=== PATIENT | female | born 1965 | race Caucasian/White ===

== ENCOUNTER 2016-05-23 02:14 | Emergency (ER) | payer OTHER ==
[2016-05-23 02:47] VITALS: BP 140/85; PULSE 58; RESP 16; TEMP 97.9; O2SAT 96
--- NOTE | 2016-05-23 03:13 | EDPHY ---
[id number] HPI/ROS: HPI The patient presents brought in by ambulance with right foot pain which has been present for the last 1 week and is getting progressively worse. The pain is achy, constant, though worse when she walks. She is here from [place], [place] and came here on a whim. She has been staying at the [facility]. She has been doing several hours of walking every day. She does not have any changes in her skin, redness, fevers or chills. She does not have any direct trauma. REVIEW OF SYSTEMS Constitutional: No fever, no chills. Eyes: No discharge. ENT: No sore throat. Cardiovascular: No chest pain, no palpitations. Respiratory: No cough, no shortness of breath. Gastrointestinal: No abdominal pain, no vomiting. Genitourinary: No hematuria. Musculoskeletal: No back pain. Skin: No rashes. Neurological: No headache. PMHx: Psychiatric disease, hypertension Soc Hx: Visiting from [place], staying in a homeless long-term PHYSICAL General Appearance: Alert, no distress Eyes: Pupils equal and round no pallor or injection ENT, Mouth: Mucous membranes moist Respiratory: There are no retractions, lungs are clear to auscultation Cardiovascular: Regular rate and rhythm Gastrointestinal: Abdomen is soft and non-tender, no masses, bowel sounds normal Neurological: A&O, moves all extremities Skin: Warm and dry, no rashes Musculoskeletal: Neck is supple non tender Extremities: Right plantar surface of foot has a callus at the base of the 1st MTP, symmetrical, full range of motion Psychiatric: Patient is oriented X 3, there is no agitation Source: Patient, EMS - Personal History LMP (Females 10-55): Irregular Current Tetanus/Diphtheria Vaccine: Unsure Current Tetanus Diphtheria and Acellular Pertussis (TDAP): Unsure - Medical/Surgical History Hx Asthma: No Hx Chronic Respiratory Disease: No Hx Diabetes: No Hx Cardiac Disease: No Hx Renal Disease: No Hx Cirrhosis: No Hx Alcoholism: No Hx HIV/AIDS: No Hx Splenectomy or Spleen Trauma: No Other PMH: psych - Social History Smoking Status: Current every day smoker Constitutional: Initial Vital Signs Temperature (C) 36.6 C 05/23/16 02:43 Heart Rate 58 L 05/23/16 02:43 Respiratory Rate 16 05/23/16 02:43 Blood Pressure 140/85 H 05/23/16 02:43 O2 Sat (%) 96 05/23/16 02:43 O2 Delivery Mode Room Air Allergies/Adverse Reactions: No Known Allergies Allergy (Unverified 05/23/16 02:28) Home Medications: Medication Instructions Recorded Gabapentin 05/23/16 [place] Aspartate 05/23/16 Metoprolol Tartrate 05/23/16 NK [No Known Home Meds] 05/23/16 traZODone 05/23/16 Medical Decision Making Differential Diagnosis: This is a 51-year-old homeless woman with past medical history of some sort of psychiatric disease, schizoaffective versus bipolar, hypertension who presents brought in by ambulance for right foot pain after prolonged walking. She appears to have a callus on her foot. Other possibilities include cellulitis, abscess, fungal infection. I have explained that she should rest, ice, elevate her leg and take ibuprofen as needed for pain. She is in agreement with this. She will be discharged back to her homeless long-term. Departure - Departure Disposition: Home, Routine, Self-Care Clinical Impression: Foot callus Condition: Good Instructions: Foot Sprain (ED), RICE Therapy (ED) Additional Instructions: I recommend you take ibuprofen 400 mg every 6 hours as needed for pain. Referrals: [facility] [Outside] - As per Instructions
== END 2016-05-23 03:31 | disposition home or self-care (01) ==
DX: L84 Corns and callosities (principal); F17.200 Nicotine dependence, unspecified, uncomplicated; I10 Essential (primary) hypertension

== ENCOUNTER 2016-05-27 18:08 | Emergency (ER) | payer OTHER ==
[2016-05-27 18:11] VITALS: BP 147/89; PULSE 79; RESP 18; TEMP 98.1; O2SAT 98
--- NOTE | 2016-05-27 18:13 | EDPHY ---
H & P Stated Complaint: R Foot Pain Time Seen by Provider: 05/27/16 18:38 HPI/ROS: CHIEF COMPLAINT: Insomnia HISTORY OF PRESENT ILLNESS: This patient is a homeless 51 year old female who presents to the Emergency Department complaining of difficulty sleeping over the past five days. She attributes this to staying in the [facility] skilled nursing and tells me that she is hoping to sleep better tonight when she has a reservation at a hotel. She also complains of hearing intermittent voices; she is a and hears a voice requesting that she check-in. She also hears her partner's voice complimenting her. She has not experienced this symptom in the past but is not concerned about it. She is not currently experiencing auditory or visual hallucinations. She denies thoughts of self-harm or suicide. Medical history includes a mood disorder for which she takes lithium and trazodone. She was seen here in the ED on 05/23 for complaint of right foot pain and was discharged home in good condition at that time. History taking was interrupted when the patient fell asleep twice while reporting her condition. REVIEW OF SYSTEMS: A ten point review of systems was performed and is negative with the exception of the items mentioned in the HPI. Source: Patient - Personal History LMP (Females 10-55): Post Menopausal Current Tetanus Diphtheria and Acellular Pertussis (TDAP): Yes Tetanus Vaccine Date: within 10 years - Medical/Surgical History Hx Asthma: No Hx Chronic Respiratory Disease: No Hx Diabetes: No Hx Cardiac Disease: No Hx Renal Disease: No Hx Cirrhosis: No Hx Alcoholism: No Hx HIV/AIDS: No Hx Splenectomy or Spleen Trauma: No Other PMH: psych - PTSD, HTN - Social History Smoking Status: Current every day smoker Additional Social History: She is homeless. She and her partner are planning to return to the [facility] later this week and reportedly have the resources for a hotel tonight and a plane ticket. - Physical Exam Exam: General Appearance: Alert. Vital signs reviewed. BP 147/89. Eyes: Pupils equal and round, no conjunctival injection, no discharge. Anicteric. ENT, Mouth: Mucous membranes are moist, no oropharyngeal erythema or edema. Neck: No lymphadenopathy, supple. Respiratory: Lungs are clear to auscultation; no wheezes, rales, or rhonchi. Cardiovascular: Regular rate and rhythm; no murmur, rub, or gallop. Gastrointestinal: Abdomen is soft and nontender, no masses or organomegaly, bowel sounds normal. Skin: Warm and dry, no rashes on exposed skin, normal color. Extremities: No lower extremity edema, no calf tenderness or swelling. Blister on dorsum of left foot, ball of foot below great toe. Also callous at that site. No signs of infection either foot.. Neurological: Alert and oriented. Moving all four extremities easily and equally. Psychiatric: Appears sleepy. No agitation. Not attending to external stimuli. Constitutional: Initial Vital Signs Temperature (C) 36.7 C 05/27/16 18:10 Heart Rate 79 05/27/16 18:10 Respiratory Rate 18 05/27/16 18:10 Blood Pressure 147/89 H 05/27/16 18:10 O2 Sat (%) 98 05/27/16 18:10 O2 Delivery Mode Room Air Allergies/Adverse Reactions: No Known Allergies Allergy (Unverified 05/23/16 02:28) Home Medications: Medication Instructions Recorded Gabapentin 05/23/16 [place] Aspartate 05/23/16 Metoprolol Tartrate 05/23/16 NK [No Known Home Meds] 05/23/16 traZODone 05/23/16 Medical Decision Making ED Course/Re-evaluation: I discussed the patient with Case Management who will provide the patient with a bus pass to go to the hotel where she has a reservation. We will bandage her blister and provide her with socks prior to discharge home. The patient is agreeable to this plan. I have not found evidence of an emergency medical condition that would require further evaluation in the emergency department. Differential Diagnosis: I considered a differential diagnosisThat includes but is not limited to effect of sleep deprivation,psychosis,auditory hallucinations, clemencia, and depression. Departure - Departure Disposition: Home, Routine, Self-Care Clinical Impression: Blister of foot Qualifiers: Qualifier Code: (S90.821D) Blister (nonthermal), right foot, subsequent encounter Insomnia Qualifiers: Qualifier Code: (G47.09) Other insomnia Condition: Good Instructions: Insomnia (ED), Blister (ED) Additional Instructions: 1. Get a night of good sleep to see if you feel better. 2. Wear socks and the bandage over your blister over the next 1-2 days to see if this improves your foot pain. 3. Follow-up with [facility] should you have additional health concerns. 4. Return to the Emergency Department if you experience thoughts of suicide or self-harm, hallucinations, numbness or tingling, dizziness, anxiety, chest pain , fever, or other serious concerns. Referrals: [facility] [Outside] - As per Instructions Report Scribed for: Anita Worrell Report Scribed by: June Mott Date of Report: 05/27/16 Time of Report: 18:17 Physician Review and Approval Statement: 05/27/16 18:12 Portions of this note were transcribed by the medical claims manager. I, Dr. Anita Worrell, personally performed the history, physical exam, and medical decision- making; and confirmed the accuracy of the information in the transcribed note.
== END 2016-05-27 18:52 | disposition home or self-care (01) ==
LOC: EDUNIT#
DX: G47.09 Other insomnia (principal); S90.821D Blister (nonthermal), right foot, subsequent encounter; F17.200 Nicotine dependence, unspecified, uncomplicated; I10 Essential (primary) hypertension; X58.XXXD Exposure to other specified factors, subsequent encounter

== ENCOUNTER 2016-06-16 09:04 | Emergency (ER) | payer OTHER ==
[2016-06-16 09:10] VITALS: TEMP 98.1; O2SAT 94
--- NOTE | 2016-06-16 09:44 | EDPHY ---
H & P Time Seen by Provider: 06/16/16 09:41 HPI/ROS: CHIEF COMPLAINT: Back pain HISTORY OF PRESENT ILLNESS: This patient is a 51 year old woman, with a history of mental illness, presenting with two weeks of acute left lower back pain, radiating to both legs. The patient reports that she had an exacerbation of her mental illness a few weeks ago and "lost touch with reality", which precipitated her waking from [place] to [place]. She reports that she fell several times while walking. Since then she has experienced lower back and right hip pain. She was seen by her primary care provider in [place] last week , who ordered a lumbar spine and hip x-ray, however she did not complete these because she felt her symptoms were not that severe. Now, however, she needs to stop due to pain after walking 10-15 feet. Moderate in severity. Denies lower extremity weakness or paresthesia. The patient also reports recent sinus congestion and productive cough. It is associated with lymphadenopathy. Denies fever or neck pain. REVIEW OF SYSTEMS: Constitutional: No fever, no chills Eyes: No visual changes ENT: Congestion. No sore throat Respiratory: cough, no shortness of breath Cardiac: No chest pain Gastrointestinal: No nausea, no vomiting, no abdominal pain Genitourinary: No hematuria, no dysuria Musculoskeletal: Low back and right hip pain Skin: No rash Neurological: No headache, no numbness, no weakness Psychiatric: Mental illness Past Medical/Surgical History: Mental illness Social History: Smokes cigarettes, visiting from [facility], PCP is in [place] Smoking Status: Current every day smoker Physical Exam: General Appearance: Alert, pleasant, does not appear in pain Eyes: Pupils equal and round, no conjunctival pallor or injection ENT, Mouth: Mucous membranes moist Neck: Normal inspection, anterior lymphadenopathy Respiratory: Lungs are clear to auscultation Cardiovascular: Regular rate and rhythm Gastrointestinal: Abdomen is soft and non- tender Back: Left low back tenderness, mild. Neurological: A&O, nonfocal, normal gait Skin: Warm and dry, no rash Extremities: Nontender, full range of motion of right hip, no pain with ambulation, no pedal edema Psychiatric: Mood and affect normal Constitutional: Initial Vital Signs Temperature (C) 36.7 C 06/16/16 09:08 Heart Rate 79 06/16/16 09:08 Respiratory Rate 18 06/16/16 09:08 Blood Pressure 141/94 H 06/16/16 09:08 O2 Sat (%) 94 06/16/16 09:08 O2 Delivery Mode Room Air Allergies/Adverse Reactions: No Known Allergies Allergy (Verified 06/16/16 09:05) Home Medications: Medication Instructions Recorded [place] Aspartate 05/23/16 Metoprolol Tartrate 05/23/16 traZODone 05/23/16 risperiDONE 06/16/16 Medical Decision Making - Diagnostics Imaging: Study: Lumbar spine X-ray Indication: Trauma Results: I viewed the images myself on the PACS system. My interpretation of the images is: No acute fracture. Scoliosis, degenerative disk disease. The radiologist interpretation is pending at the time of this dictation. ED Course/Re-evaluation: X-ray results discussed with the patient. Ibuprofen instructions given. Departure - Departure Disposition: Home, Routine, Self-Care Clinical Impression: Low back strain Qualifiers: Encounter type: initial encounter Qualifier Code: (S39.012A) Strain of muscle, fascia and tendon of lower back, initial encounter Contusion of right hip Qualifiers: Encounter type: initial encounter Qualifier Code: (S70.01XA) Contusion of right hip, initial encounter Upper respiratory infection Qualifiers: URI type: unspecified viral URI Qualifier Code: (J06.9) Acute upper respiratory infection, unspecified Condition: Good Instructions: Low Back Strain (ED), Hip Contusion (ED), Upper Respiratory Infection (ED) Additional Instructions: Return to the emergency department for severe pain, fever, numbness, difficulty walking, change in location or nature of pain or other concerns. Use ibuprofen and Tylenol as directed. Try using a heating pad. Adult Pain & Fever Control: We recommend Acetaminophen (Tylenol) and Ibuprofen (Motrin,Advil) for pain and fever control. When fever is high or pain severe, both drugs can be used at the same time, but at different intervals. Please note the time differences. Your dose is: Acetaminophen 650mg every 4 to 6 hours Ibuprofen 600mg every 6-8 hours with food Note: do not take Acetaminophen with Hydrocodone (Vicodin, Lortab) or Oycodone (Percocet). These medications also contain Acetaminophen. No more than 3000mg of Acetaminophen should be taken in 24 hours (for an adult). Referrals: [facility] [Outside] - As per Instructions Report Scribed for: Gay Iverson Report Scribed by: Tere Conrad Date of Report: 06/16/16 Time of Report: 09:43 Physician Review and Approval Statement: 06/16/16 09:43 Portions of this note were transcribed by a special forces medical sergeant. I personally performed a history, physical exam, medical decision making, and confirmed accuracy of information the transcribed note.
--- NOTE | 2016-06-16 10:17 | DX ---
Lumbar Spine, AP and Lateral Upright Views, at 9:29 a.m. Clinical History: 51-year-old female presenting to the ED complaining of low back pain and a history of multiple falls last week. Comparison Study: None. Findings: There is a levorotatory lumbar scoliosis measuring 21 degrees, and there are small ventral traction osteophytes at L1-L2, with evidence of 4 mm of retrolisthesis (likely degenerative in etiolo gy). There is also moderate degenerative disk space narrowing at L4-L5 and L5-S1. There is facet hype rtrophy, most pronounced at the L4-L5 and L5-S1 levels. Ventral and dorsal traction spurs at L5 are s een. The sacral arc lines are well-contoured. There is no SI joint or symphysis pubis diastasis. Impression: Levorotatory lumbar scoliosis with multilevel degenerative changes, and no acute osseous abnormality.
[2016-06-16 10:47] VITALS: BP 132/90; PULSE 72; RESP 16
== END 2016-06-16 10:46 | disposition home or self-care (01) ==
DX: S39.012A Strain of muscle, fascia and tendon of lower back, initial encounter (principal); S70.01XA Contusion of right hip, initial encounter; J06.9 Acute upper respiratory infection, unspecified; F17.200 Nicotine dependence, unspecified, uncomplicated; W19.XXXA Unspecified fall, initial encounter; Y99.8 Other external cause status; Y93.01 Activity, walking, marching and hiking